=== PATIENT | male | born 1940 | race Caucasian/White ===

== ENCOUNTER 2023-01-19 10:39 | Emergency (ER) | payer OTHER ==
[~2023-01-19] VITALS: Ht 152.4 cm; Wt 54.4 kg
[2023-01-19 10:52] VITALS: BP_SYST 160; PULSE 98; RESP 16; TEMP 97; O2SAT 97
[2023-01-19 11:19] LABS: BASOPHILS # (AUTO) 0.1 K/uL (0.0-0.2); BASOPHILS % (AUTO) 0.8 % (0.0-2.0); EOSINOPHILS # (AUTO) 0.1 K/uL (0.0-0.4); EOSINOPHILS % (AUTO) 1.2 % (0.0-4.0); HEMOGLOBIN 13.3 g/dL (14.0-18.0); LYMPHOCYTES # (AUTO) 1.8 K/uL (1.0-5.5); LYMPHOCYTES % (AUTO) 20.4 % (20.5-51.5); MEAN CORPUSCULAR HEMOGLOBIN 28 pg (27-31); MEAN CORPUSCULAR HGB CONC 33 % (32-36); MEAN CORPUSCULAR VOLUME 87 fL (79.0-98.0); MONOCYTES # (AUTO) 0.7 K/uL (0.0-1.0); MONOCYTES % (AUTO) 8.1 % (1.7-9.3); NEUTROPHILS # (AUTO) 6.3 K/uL (1.8-7.7); NEUTROPHILS % (AUTO) 69.5 % (40.0-70.0); PLATELET COUNT (AUTO) 264 K/uL (130-430); RED CELL DISTRIBUTION WIDTH 13.9 % (9.0-15.0); WHITE BLOOD COUNT (AUTO) 9.1 K/uL (4.8-10.8)
[2023-01-19 11:31] LABS: ERYTHROCYTE SEDIMENTATION RATE 47 MM/HR (0-15)
[2023-01-19 11:36] LABS: PROTHROMBIN TIME 10.8 SECS (9.5-12.5)
[2023-01-19 11:40] LABS: ANION GAP 7 (5-15); CALCIUM 9.1 mg/dL (8.4-11.0); CARBON DIOXIDE 25 mmol/L (23-29); CHLORIDE 98 mmol/L (98-107); CREATININE 0.69 mg/dL (0.55-1.30); GLUCOSE 121 mg/dL (74-106); POTASSIUM 3.8 mmol/L (3.5-5.1); SODIUM SERUM 130 mmol/L (136-145); UREA NITROGEN, BLOOD 18 mg/dL (8-21)
[2023-01-19] MEDS ORDERED: DIPHTH,PERTUSS(ACELL),TET VAC 0.5 ML VIAL (Tdap) I.M. ONE (11:45)
[2023-01-19] MEDS ORDERED: BACITRACIN 1 GM OINT TP ONE (11:45)
[2023-01-19] MEDS ORDERED: LIDOCAINE 1% 10 MG/ML, 20 ML MDV INJ ONE (11:45)
[2023-01-19 12:29] LABS: ALANINE AMINOTRANSFERASE 32 U/L (12-78); ASPARTATE AMINOTRANSFERASE 40 U/L (10-37); TOTAL BILIRUBIN 0.7 mg/dL (0.0-1.0); URIC ACID 5.2 mg/dL (2.4-7.0)
[2023-01-19] MEDS ORDERED: IBUP-1969 PO (12:50)
[2023-01-19] MEDS ORDERED: TRAM50TA2 PO (12:50)
[2023-01-19 12:59] VITALS: BP_SYST 137; PULSE 72; RESP 16; TEMP 97.2; O2SAT 98
[2023-01-19] MEDS ORDERED: DIPH-TET Vacc 0.5 ML VIAL I.M. ONE (13:03)
[2023-01-19 16:43] LABS: BF APPEARANCE UNSPUN HAZY (CLEAR); SOURCE/TYPE ,BODY FLUID SYNOVIAL
[2023-01-19 16:44] LABS: APPEARANCE,SPUN,BODY FLUID CLEAR (CLEAR); BODY FLUID COLOR YELLOW (LT YELLOW); BODY FLUID TOTAL VOLUME 35 mL; LYMPHOCYTES, BODY FLUID 7 %; NEUTROPHIL, BODY FLUID 93 %; RBC, BODY FLUID 794 /uL; WBC, BODY FLUID 1638 /uL
[2023-01-19 16:48] LABS: BODY FLUID CRYSTALS NO CRYSTALS SEEN (None Seen)
== END 2023-01-19 12:58 | disposition home or self-care (01) ==
LOC: SED 10:39
DX: M25.462 Effusion, left knee (principal); Z79.899 Other long term (current) drug therapy
CPT/HCPCS: 36415; 73564; 80053; 82947; 84157; 84550; 85025; 85610-TC; 85651-TC; 85730-TC; 87070-TC; 89051-TC; 89060-TC; 90714; 90715; 99284